=== PATIENT | female | born 1985 | race Hispanic/Latino ===

== ENCOUNTER 2021-12-24 16:35 | Emergency (ER) | payer OTHER ==
[~2021-12-24] VITALS: Ht 157.5 cm; Wt 88.9 kg
[~2021-12-24 16:35] MED LIST: ERYT1OIN7 OD
[2021-12-24] MEDS ORDERED: LACTATED RINGERS 1000ML 1,000 ML IV ONE (17:00)
[2021-12-24 17:12] LABS: BASOPHILS % (AUTO) 0.3 % (0.0-5.0); EOSINOPHILS % (AUTO) 0.4 % (0.0-8.0); HEMATOCRIT 39.4 % (36-48); LYMPHOCYTES % (AUTO) 13.2 % (21.0-51.0); MEAN CORPUSCULAR HEMOGLOBIN 25.6 pg (27.0-33.0); MEAN CORPUSCULAR HGB CONC 32.2 g/dL (32.0-36.0); MEAN CORPUSCULAR VOLUME 79.3 fL (79-99); NEUTROPHILS % (AUTO) 80.8 % (40.0-77.0); PLATELET COUNT (AUTO) 316 K/uL (130-400); RED BLOOD CELL COUNT(AUTO) 4.97 MIL/uL (4.00-5.50); RED CELL DISTRIBUTION WIDTH 14.2 % (11.0-15.5); WHITE BLOOD COUNT (AUTO) 11.9 K/uL (4.8-10.8)
[2021-12-24 17:20] LABS: HCG,QUAL RESULT NEGATIVE (NEGATIVE)
[2021-12-24 17:21] LABS: AMPHET/METH SCREEN,URINE NEGATIVE (NEGATIVE); BARBITURATE SCREEN, URINE NEGATIVE (NEGATIVE); BENZODIAZEPINES SCREEN,URINE NEGATIVE (NEGATIVE); CANNABINOID SCREEN,URINE NEGATIVE (NEGATIVE); COCAINE SCREEN,URINE NEGATIVE (NEGATIVE); OPIATE SCREEN,URINE NEGATIVE (NEGATIVE); PHENCYCLIDINE SCREEN,URINE NEGATIVE (NEGATIVE)
[2021-12-24 17:22] LABS: CREATININE 0.8 mg/dL (0.5-1.5); POTASSIUM 3.5 mmol/L (3.5-5.1)
[2021-12-24 17:26] LABS: ALBUMIN 3.6 g/dL (3.5-5.0); BILIRUBIN,TOTAL 0.3 mg/dL (0.2-1.0); TOTAL PROTEIN, SERUM 7.3 g/dL (6.0-8.3)
[2021-12-24] MEDS ORDERED: IOHEXOL 350 MG/ML 100ML INFUS..BTL IV ONE (17:41)
[2021-12-24] MEDS ORDERED: IBUP-1493 PO (18:21)
[2021-12-24] MEDS ORDERED: ONDA4TAB10 PO (18:26)
[2021-12-24 18:37] VITALS: BP 115/49
== END 2021-12-24 18:43 | disposition home or self-care (01) ==
LOC: EDH 16:35
DX: K80.20 Calculus of gallbladder without cholecystitis without obstruction (principal)
CPT/HCPCS: 99285; 74177; 96360; 76705; 80053; 82150; 80305; 83690; 85025; 81025; 36415; 93005; J7120; Q9967

== ENCOUNTER 2022-04-10 19:21 | Emergency (ER) | payer OTHER ==
[~2022-04-10] VITALS: Ht 157.5 cm; Wt 74.4 kg
[~2022-04-10 19:21] MED LIST changes: +IBUP-1493 PO; +ONDA4TAB10 PO
[2022-04-10 19:22] VITALS: BP 15/73
[2022-04-10] MEDS ORDERED: KETOROLAC 60 MG VIAL (30MG/ML) IM ONE (20:00)
[2022-04-10] MEDS ORDERED: CYCLOBENZAPRINE HCL 10 MG TABLET PO ONE (20:00)
[2022-04-10] MEDS ORDERED: CYCL10TA16 PO (20:40)
[2022-04-10] MEDS ORDERED: IBUP-2070 PO (20:40)
== END 2022-04-10 21:04 | disposition home or self-care (01) ==
LOC: EDH 19:21
DX: S20.212A Contusion of left front wall of thorax, initial encounter (principal); Z79.1 Long term (current) use of non-steroidal anti-inflammatories (NSAID); X58.XXXA Exposure to other specified factors, initial encounter; Y93.89 Activity, other specified; Y92.89 Other specified places as the place of occurrence of the external cause; Y99.8 Other external cause status
CPT/HCPCS: 99284; 81025; 71101; 96372; J1885